=== PATIENT | male | born 1955 | race Caucasian/White ===

== ENCOUNTER 2017-04-03 22:31 | Inpatient (IN) | payer BC, OTHER ==
[2017-04-03] MEDS ORDERED: Pantoprazole 40 MG Vial IVPUSH ONE (22:35)
[2017-04-03] MEDS ORDERED: Lactated Ringers 1,000 ML IV ONE (22:35)
[2017-04-03] MEDS ORDERED: Famotidine 20 MG/2 ML SDV IVPUSH ONE (22:35)
[2017-04-03] MEDS ORDERED: Ondansetron 4 MG/2 ML SDV IVPUSH ONE ×2 (22:35→23:49)
--- NOTE | 2017-04-03 22:40 | EDM.PDOC ---
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 Code(s): 30497355 Code(s): K21.9 - GASTRO-ESOPHAGEAL REFLUX DISEASE WITHOUT ESOPHAGITIS Status: Chronic Priority: Medium Annotation/Comment:: Recently under moderate control as above with IV Protonix and IV Pepcid given in the emergency room (4) Abdominal wall hernia SNOMED Code(s): 038397604 Code(s): K43.9 - VENTRAL HERNIA WITHOUT OBSTRUCTION OR GANGRENE Status: Chronic Priority: Medium Annotation/Comment:: Large ventral wall abdominal and incisional hernias as above with no direct evidence of incarceration (5) COPD (chronic obstructive pulmonary disease) SNOMED Code(s): 36336367 Code(s): J44.9 - CHRONIC OBSTRUCTIVE PULMONARY DISEASE, UNSPECIFIED Status : Chronic Priority: Medium Annotation/Comment:: No recent fever or bronchitic type symptoms Qualifiers: COPD type: emphysema Emphysema type: panlobular Qualified Code(s): J43.1 - Panlobular emphysema (6) Hypothyroidism SNOMED Code(s): 34467971 Code(s): E03.9 - HYPOTHYROIDISM, UNSPECIFIED Status: Chronic Priority: Medium Annotation/Comment:: Currently under therapy Qualifiers: Hypothyroidism type: acquired Qualified Code(s): E03.9 - Hypothyroidism, unspecified (7) Mixed anxiety depressive disorder SNOMED Code(s): 666246321 Code(s): F41.8 - OTHER SPECIFIED ANXIETY DISORDERS Status: Chronic Priority: Medium Annotation/Comment:: Stable by patient history (8) Osteoarthritis SNOMED Code(s): 229616414 Code(s): M19.90 - UNSPECIFIED OSTEOARTHRITIS, UNSPECIFIED SITE Status: Chronic Priority: Medium Annotation/Comment:: Stable by history Qualifiers: Osteoarthritis location: multiple joints Osteoarthritis type: primary Qualified Code(s): M15.0 - Primary generalized (osteo)arthritis - Problem List Review Problem List Initiated/Reviewed/Updated: Yes - My Orders Last 24 Hours: My Active Orders 04/03/17 22:35 Peripheral IV Care [RC] . DIRECTED Abdomen Series w Chest 1V [CR] Stat OCCULT BLOOD DIAGNOSTIC [OP] Stat Sodium Chloride 0.9% [Saline Flush] 10 ml FLUSH ASDIRECTED PRN Obtain Past Medical Record [OM.PC] Urgent Peripheral IV Insertion Adult [OM.PC] Stat Resuscitation Status Stat 04/03/17 23:12 CULTURE URINE [RM] Stat 04/03/17 23:24 Abdomen Pelvis w Cont [CT] Stat 04/03/17 23:30 cefTRIAXone [Rocephin] 1 gm Sodium Chloride 0.9% [Normal Saline] 100 ml IV Q12H 04/03/17 Breakfast Nothing Per Oral Diet [DIET] 04/04/17 00:30 metroNIDAZOLE/Normal Saline [Flagyl 500 MG in NS 100 ML] 500 mg Premix Bag 1 bag IV Q8H 04/04/17 01:34 NG [Nasogastric Orogastric Tube Insertion] [OM.PC] Routine - Assessment/Plan Admission H&P: Please use this note as an admission H&P Last 24 Hours: My Active Orders 04/03/17 22:35 Peripheral IV Care [RC] . DIRECTED Abdomen Series w Chest 1V [CR] Stat OCCULT BLOOD DIAGNOSTIC [OP] Stat Sodium Chloride 0.9% [Saline Flush] 10 ml FLUSH ASDIRECTED PRN Obtain Past Medical Record [OM.PC] Urgent Peripheral IV Insertion Adult [OM.PC] Stat Resuscitation Status Stat 04/03/17 23:12 CULTURE URINE [RM] Stat 04/03/17 23:24 Abdomen Pelvis w Cont [CT] Stat 04/03/17 23:30 cefTRIAXone [Rocephin] 1 gm Sodium Chloride 0.9% [Normal Saline] 100 ml IV Q12H 04/03/17 Breakfast Nothing Per Oral Diet [DIET] 04/04/17 00:30 metroNIDAZOLE/Normal Saline [Flagyl 500 MG in NS 100 ML] 500 mg Premix Bag 1 bag IV Q8H 04/04/17 01:34 NG [Nasogastric Orogastric Tube Insertion] [OM.PC] Routine Assessment:: As above Plan: As above. Extensive precautions were given to the patient, who is in agreement with the treatment plan. The patient will require about 3-4 days of inpatient/ acute care secondary to multiple health problems as above.
[2017-04-03] MEDS: Sodium Chloride 0.9% 10 ML Syringe FLUSH PRN (22:59)
[2017-04-03 23:02] LABS: CHLORIDE,CL 101 mmol/L (98-107); SODIUM,NA 138 mmol/L (136-145)
[2017-04-03] MEDS ORDERED: HYDROmorphone 1 MG/ML Syringe IVPUSH ONE (23:50)
[2017-04-03] MEDS: cefTRIAXone 1 GM in Sodium Chloride 0.9% 100 ML IV SCH (23:51)
[2017-04-03] MEDS ORDERED: Iopamidol 612 MG/ML 100 ML Bottle IVPUSH ONE (23:57)
[2017-04-04] MEDS: metroNIDAZOLE/Normal Saline 500 MG in Premix Bag 1 BAG IV SCH ×4 (01:03→23:55)
[2017-04-04] MEDS ORDERED: Ondansetron 4 MG/2 ML SDV IVPUSH PRN (01:54)
[2017-04-04] MEDS ORDERED: Albuterol/Ipratropium 3.0-0.5 MG/3 ML Neb Soln NEB PRN (01:58)
[2017-04-04] MEDS ORDERED: Acetaminophen 650 MG Supp RECTAL PRN (01:58)
[2017-04-04] MEDS ORDERED: Albuterol 0.083% 2.5 MG/3 ML Neb Soln INH PRN (01:58)
[2017-04-04] MEDS ORDERED: Phenol 1.4% Oral Spray 177 ML Bottle MUCMEM PRN (01:59)
[2017-04-04] MEDS ORDERED: D5 1/2 NS w/ 20 mEq/L KCl 1,000 ML IV SCH (02:00)
[2017-04-04] MEDS: D5 1/2 NS w/ 40 mEq/L KCl 1,000 ML IV SCH ×2 (03:01→19:11)
[2017-04-04] MEDS: Albuterol/Ipratropium 3.0-0.5 MG/3 ML Neb Soln NEB SCH ×3 (08:37→19:35)
[2017-04-04] MEDS: Sodium Chloride 0.9% 10 ML Syringe FLUSH SCH ×2 (08:37→19:35)
--- NOTE | 2017-04-04 09:45 | PCM.SN ---
- Free Text/Narrative Note: KUB abdominal x-rays this morning shows stable moderate diffuse gaseous distention and stool with no evidence of free air and NG tube in proper position. Multiple surgical clips once again noted. Physical exam is stable from time of admission with improved symptoms by patient history. Vital signs are also stable with patient still afebrile, however development of some mild bradycardia. Continue to observe closely. Santiago Nickesron MD, general surgeon, did see the patient this morning with final consultation still pending but no further treatment recommendations to this point. [facility] physician assumes care in the a.m. with repeat blood work and x-rays already ordered. Anticipate 48-72 hours of NG tube therapy with consideration of transfer to [place], if the patient has not responded to therapy to that point. Extensive precautions were given to the patient, who is in agreement with the treatment plan.
[2017-04-04] MEDS: Pantoprazole 40 MG Vial IVPUSH SCH ×2 (11:37→23:54)
[2017-04-04] MEDS: cefTRIAXone 1 GM in Sodium Chloride 0.9% 100 ML IV SCH ×2 (11:38→23:54)
[2017-04-04] MEDS: Metoclopramide 10 MG/2 ML SDV IVPUSH PRN (16:22)
[2017-04-04] MEDS ORDERED: Temazepam 15 MG Cap PO PRN (20:00)
[2017-04-05] MEDS: Albuterol/Ipratropium 3.0-0.5 MG/3 ML Neb Soln NEB SCH ×4 (01:43→19:45)
[2017-04-05] MEDS: metroNIDAZOLE/Normal Saline 500 MG in Premix Bag 1 BAG IV SCH (07:45)
[2017-04-05] MEDS: Famotidine 20 MG/2 ML SDV IVPUSH SCH ×2 (07:45→19:46)
[2017-04-05] MEDS: Sodium Chloride 0.9% 10 ML Syringe FLUSH SCH ×2 (07:46→19:46)
[2017-04-05] MEDS: D5 1/2 NS w/ 40 mEq/L KCl 1,000 ML IV SCH ×2 (07:47→23:35)
[2017-04-05 07:52] LABS: CHLORIDE,CL 104 mmol/L (98-107); SODIUM,NA 137 mmol/L (136-145)
[2017-04-05] MEDS: Pantoprazole 40 MG Vial IVPUSH SCH ×2 (11:34→23:37)
[2017-04-05] MEDS: Sodium Chloride 0.9% 10 ML Syringe FLUSH PRN ×2 (11:34→23:38)
[2017-04-05] MEDS: cefTRIAXone 1 GM in Sodium Chloride 0.9% 100 ML IV SCH (11:34)
[2017-04-05] MEDS ORDERED: Magnesium Sulfate (4.06 MEQ/ML) 1 GM/2 ML SDV IV ONE (11:41)
--- NOTE | 2017-04-05 11:47 | PCM.PN ---
- General Info Date of Service: 04/05/17 Admission Dx/Problem (Free Text): Bowel obstruction Subjective Update: The patient reports pain has nearly resolved and currently rates pain at 1-2/ 10. He reports he has been passing some gas but no bowel movements. NG in place and remains NPO. Functional Status: Reports: pain controlled - Patient Data Vitals - most recent: Last Vital Signs Temp 36.4 C 04/05/17 08:00 Pulse 45 L 04/05/17 08:00 Resp 20 04/05/17 08:00 BP 106/65 04/05/17 08:00 Pulse Ox 98 04/05/17 08:00 Weight - most recent: 48.625 kg I&O - last 24 hours: Intake & Output 04/04/17 04/05/17 04/05/17 22:59 06:59 14:59 Intake Total 751 1000 Output Total 400 400 Balance 351 600 Lab Results last 24 hrs: Laboratory Results - last 24 hr 04/05/17 04/05/17 Range/Units 06:20 06:20 WBC 7.8 (4.0-10.2) K/uL RBC 4.08 L (4.33-5.41) M/uL Hgb 14.8 D (13.1-16.8) g/dL Hct 42.3 (39.0-49.0) % MCV 103.7 H (84.0-98.0) fL MCH 36.3 H (28.2-33.3) pg MCHC 35.0 (31.7-36.0) g/dL RDW 12.1 (11.2-14.1) % Plt Count 179 (150-350) K/uL Neut % (Auto) 74.2 (45.0-80.0) % Lymph % (Auto) 13.3 (10.0-50.0) % [place] % (Auto) 10.1 (2.0-14.0) % Eos % (Auto) 2.0 (0.0-5.0) % Baso % (Auto) 0.4 (0.0-2.0) % Neut # (Auto) 5.81 (1.40-7.00) K/uL Lymph # (Auto) 1.04 (0.50-3.50) K/uL [place] # (Auto) 0.79 (0.00-1.00) K/uL Eos # (Auto) 0.16 (0.00-0.50) K/uL Baso # (Auto) 0.03 (0.00-0.20) K/uL Sodium 137 (136-145) mmol/L Potassium 4.3 (3.5-5.1) mmol/L Chloride 104 (98-107) mmol/L Carbon Dioxide 28.9 (21.0-32.0) mmol/L BUN 7 (7-18) mg/dL Creatinine 0.75 (0.51-1.17) mg/dL Est Cr Clr Drug Dosing 73.52 mL/min Estimated GFR (MDRD) > 60 mL/min Glucose 111 H (74-106) mg/dL Calcium 8.0 L D (8.5-10.1) mg/dL Magnesium 1.6 L (1.8-2.4) mg/dL Total Bilirubin 0.7 (0.2-1.0) mg/dL AST 23 (15-37) U/L ALT 26 (12-78) U/L Alkaline Phosphatase 55 (46-116) IU/L Total Protein 6.0 L (6.4-8.2) g/dL Albumin 3.2 L (3.4-5.0) g/dL Amylase 42 (25-115) U/L Lipase 102 (73-393) U/L Med Orders - Current: Current Medications Acetaminophen (Tylenol) 650 mg RECTAL Q4H PRN PRN Reason: Fever Albuterol (Proventil Neb Soln) 2.5 mg INH Q2HR PRN PRN Reason: SHORTNESS OF BREATH Albuterol/Ipratropium (Duoneb 3.0-0.5 Mg/3 Ml) 3 ml NEB Q4HRRT PRN PRN Reason: Dyspnea Albuterol/Ipratropium (Duoneb 3.0-0.5 Mg/3 Ml) 3 ml NEB Q6HRRT [facility] Last Admin: 04/05/17 07:45 Dose: 3 ml Famotidine (Pepcid) 20 mg IVPUSH Q12H [facility] Last Admin: 04/05/17 07:45 Dose: 20 mg Ceftriaxone Sodium 1 gm/ (Sodium Chloride) 100 mls @ 200 mls/hr IV Q12H [facility] Last Admin: 04/05/17 11:34 Dose: 200 mls/hr Metronidazole 500 mg/ Premix 100 mls @ 100 mls/hr IV Q8H [facility] Last Admin: 04/05/17 07:45 Dose: 100 mls/hr Potassium Chloride/Dextrose/Sod Cl (D5 1/2 Ns W/ 40 Meq/L Kcl) 1,000 mls @ 80 mls/hr IV ASDIRECTED [facility] Last Admin: 04/05/17 07:47 Dose: 80 mls/hr Magnesium Sulfate (Magnesium Sulfate 50%) 1 gm IV ONETIME ONE Stop: 04/05/17 11:42 Metoclopramide HCl (Reglan) 10 mg IVPUSH Q6H PRN PRN Reason: Heartburn Last Admin: 04/04/17 16:22 Dose: 10 mg Ondansetron HCl (Zofran) 4 mg IVPUSH Q6H PRN PRN Reason: Nausea/Vomiting Pantoprazole Sodium (Protonix Iv) 40 mg IVPUSH Q12H [facility] Last Admin: 04/05/17 11:34 Dose: 40 mg Phenol/Menthol (Chloraseptic Throat [place]) 0 ml MUCMEM Q2H PRN PRN Reason: Sore Throat Sodium Chloride (Saline Flush) 10 ml FLUSH ASDIRECTED PRN PRN Reason: Keep Vein Open Last Admin: 04/05/17 11:34 Dose: 10 ml Sodium Chloride (Saline Flush) 10 ml FLUSH Q12HR [facility] Last Admin: 04/05/17 07:46 Dose: 10 ml Temazepam (Restoril) 15 mg PO DAILY@2000 PRN PRN Reason: Insomnia Discontinued Medications Famotidine (Pepcid) 40 mg IVPUSH ONETIME ONE Stop: 04/03/17 22:36 Last Admin: 04/03/17 23:05 Dose: 40 mg Hydromorphone HCl (Dilaudid) 1 mg IVPUSH ONETIME ONE Stop: 04/03/17 23:51 Last Admin: 04/03/17 23:54 Dose: 1 mg Lactated Ringer's (Ringers, Lactated) 1,000 mls @ 999 mls/hr IV .BOLUS ONE Stop: 04/03/17 23:35 Last Admin: 04/03/17 23:18 Dose: 999 mls/hr Potassium Chloride/Dextrose/Sod Cl (D5 1/2 Ns W/ 20 Meq/L Kcl) 1,000 mls @ 75 mls/hr IV ASDIRECTED [place] Iopamidol (Isovue-300 (61%)) 100 ml IVPUSH ONETIME ONE Stop: 04/03/17 23:58 Last Admin: 04/04/17 00:54 Dose: 100 ml Ondansetron HCl (Zofran) 4 mg IVPUSH ONETIME ONE Stop: 04/03/17 22:36 Last Admin: 04/03/17 22:56 Dose: 4 mg Ondansetron HCl (Zofran) 4 mg IVPUSH ONETIME ONE Stop: 04/03/17 23:50 Last Admin: 04/03/17 23:55 Dose: 4 mg Pantoprazole Sodium (Protonix Iv) 40 mg IVPUSH ONETIME ONE Stop: 04/03/17 22:36 Last Admin: 04/03/17 22:59 Dose: 40 mg - Exam Quality Assessment: supplemental oxygen (4L ) General: alert, oriented, no acute distress HEENT: Pupils equal, Pupils reactive, EOMI, Mucous membr. moist/pink Neck: supple Lungs: Clear to auscultation, Normal respiratory effort Cardiovascular: Regular Rate, Regular Rhythm Abdomen: bowel sounds present (Hypoactive), soft, no distension, tenderness ( Very mild and diffuse. ). No: rebound, guarding, CVA tenderness Back Exam: Normal Inspection, Full Range of Motion. No: CVA Tenderness (L), CVA Tenderness (R), Paraspinal Tenderness, Vertebral Tenderness Extremities: no edema Peripheral Pulses: 2+: Radial (L), Radial (R) Skin: warm, dry, intact Neurological: no new focal deficit Psy/Mental Status: alert, normal affect, normal mood - Problem List & Annotations (1) Bowel obstruction SNOMED Code(s): 29076826 Code(s): K56.60 - UNSPECIFIED INTESTINAL OBSTRUCTION Status: Acute Priority: High Current Visit: Yes Qualifiers: Intestinal obstruction type: unspecified Qualified Code(s): K56.60 - Unspecified intestinal obstruction Annotation/Comment:: Bowel obstruction on admission with colonic distention and air-fluid levels. Improving clinically and radiographically. (2) Ileus SNOMED Code(s): 522370107 Code(s): K56.7 - ILEUS, UNSPECIFIED Status: Acute Priority: High Current Visit: Yes Onset Date: ~04/04/17 Annotation/Comment:: Significant abdominal ileus and bowel obstruction by plain abdominal films. Improving clinically. (3) COPD (chronic obstructive pulmonary disease) SNOMED Code(s): 21951911 Code(s): J44.9 - CHRONIC OBSTRUCTIVE PULMONARY DISEASE, UNSPECIFIED Status : Chronic Priority: Medium Current Visit: Yes Qualifiers: COPD type: emphysema Emphysema type: panlobular Qualified Code(s): J43.1 - Panlobular emphysema Annotation/Comment:: No recent fever or bronchitic type symptoms (4) Hypothyroidism SNOMED Code(s): 83581936 Code(s): E03.9 - HYPOTHYROIDISM, UNSPECIFIED Status: Chronic Priority: Medium Current Visit: Yes Qualifiers: Hypothyroidism type: acquired Qualified Code(s): E03.9 - Hypothyroidism, unspecified Annotation/Comment:: Currently treated. (5) Peptic reflux disease SNOMED Code(s): 92770415 Code(s): K21.9 - GASTRO-ESOPHAGEAL REFLUX DISEASE WITHOUT ESOPHAGITIS Status: Chronic Priority: Medium Current Visit: Yes Annotation/Comment:: Recently under moderate control as above with IV Protonix and IV Pepcid given in the emergency room (6) Mixed anxiety depressive disorder SNOMED Code(s): 767085382 Code(s): F41.8 - OTHER SPECIFIED ANXIETY DISORDERS Status: Chronic Priority: Medium Current Visit: Yes Annotation/Comment:: Stable by patient history (7) Osteoarthritis SNOMED Code(s): 662824073 Code(s): M19.90 - UNSPECIFIED OSTEOARTHRITIS, UNSPECIFIED SITE Status: Chronic Priority: Medium Current Visit: Yes Qualifiers: Osteoarthritis location: multiple joints Osteoarthritis type: primary Qualified Code(s): M15.0 - Primary generalized (osteo)arthritis Annotation/Comment:: Stable by history - Problem List Review Problem List Initiated/Reviewed/Updated: Yes - My Orders Last 24 Hours: My Active Orders 04/05/17 11:39 PHOSPHORUS [CHEM] Routine 04/05/17 11:41 Magnesium Sulfate [Magnesium Sulfate 50%] 1 gm IV ONETIME ONE - Assessment Assessment:: Bowel obstruction with ileus, improving clinically and radiographically. Hypomagnesemia. - Plan Plan:: 1. Continue NG and NPO today. 2. If continued improvement in pain and passing gas will advance diet beginning tomorrow. 3. IV magnesium sulfate for hypomagnesemia. 4. Check serum phosphophorus level as hypomagnesemia. 5. Wean oxygen as toleraed. 6. ABBIE beatriz and Wesleyx for DVT prophylaxis. 7. IS for pneumonia prophylaxis. 8. Recheck labs in AM.
[2017-04-05] MEDS: Enoxaparin 40 MG/0.4 ML Syringe SUBCUT SCH (12:27)
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
[2017-04-05] MEDS: Metoclopramide 10 MG/2 ML SDV IVPUSH PRN (17:54)
[2017-04-06] MEDS: Albuterol/Ipratropium 3.0-0.5 MG/3 ML Neb Soln NEB SCH ×4 (02:06→19:11)
[2017-04-06] MEDS: Enoxaparin 40 MG/0.4 ML Syringe SUBCUT SCH (07:19)
[2017-04-06] MEDS: Famotidine 20 MG/2 ML SDV IVPUSH SCH ×2 (07:19→19:10)
[2017-04-06] MEDS: Sodium Chloride 0.9% 10 ML Syringe FLUSH SCH ×2 (07:20→19:11)
[2017-04-06 07:26] LABS: CHLORIDE,CL 103 mmol/L (98-107); SODIUM,NA 136 mmol/L (136-145)
[2017-04-06] MEDS ORDERED: Magnesium Sulfate/Water 2 GM in Premix Bag 1 BAG IV ONE (10:50)
[2017-04-06] MEDS: Sodium Chloride 0.9% 10 ML Syringe FLUSH PRN ×2 (11:21→23:37)
[2017-04-06] MEDS: Pantoprazole 40 MG Vial IVPUSH SCH ×2 (11:21→23:36)
[2017-04-06] MEDS ORDERED: Acetaminophen 325 MG Tab PO ONE (17:26)
[2017-04-06] MEDS: Menthol/Methyl Salicylate 85 GM Tube TOP PRN ×2 (17:46→20:39)
[2017-04-06] MEDS: Acetaminophen 325 MG Tab PO PRN ×2 (17:47→21:05)
--- NOTE | 2017-04-06 18:52 | PCM.PN ---
- General Info Date of Service: 04/06/17 Admission Dx/Problem (Free Text): Bowel obstruction Subjective Update: The patient reports no abdominal pain and bowels are active and he can hear and feel bowel activity. Reports passing gas. Reports he feels hungry. Denies bowel movement. - Patient Data Vitals - most recent: Last Vital Signs Temp 36.5 C 04/06/17 16:30 Pulse 65 04/06/17 16:30 Resp 20 04/06/17 16:30 BP 116/79 04/06/17 16:30 Pulse Ox 100 04/06/17 16:30 Weight - most recent: 47.344 kg I&O - last 24 hours: Intake & Output 04/06/17 04/06/17 04/06/17 06:59 14:59 22:59 Intake Total 879 867 680 Output Total 1080 200 Balance -201 867 480 Lab Results last 24 hrs: Laboratory Results - last 24 hr 04/06/17 04/06/17 Range/Units 06:50 06:50 WBC 5.9 (4.0-10.2) K/uL RBC 3.97 L (4.33-5.41) M/uL Hgb 14.9 (13.1-16.8) g/dL Hct 40.0 (39.0-49.0) % MCV 100.8 H (84.0-98.0) fL MCH 37.5 H (28.2-33.3) pg MCHC 37.3 H (31.7-36.0) g/dL RDW 12.0 (11.2-14.1) % Plt Count 162 (150-350) K/uL Neut % (Auto) 66.5 (45.0-80.0) % Lymph % (Auto) 17.1 (10.0-50.0) % [place] % (Auto) 12.7 (2.0-14.0) % Eos % (Auto) 3.2 (0.0-5.0) % Baso % (Auto) 0.5 (0.0-2.0) % Neut # (Auto) 3.92 (1.40-7.00) K/uL Lymph # (Auto) 1.01 (0.50-3.50) K/uL [place] # (Auto) 0.75 (0.00-1.00) K/uL Eos # (Auto) 0.19 (0.00-0.50) K/uL Baso # (Auto) 0.03 (0.00-0.20) K/uL Sodium 136 (136-145) mmol/L Potassium 4.5 (3.5-5.1) mmol/L Chloride 103 (98-107) mmol/L Carbon Dioxide 28.2 (21.0-32.0) mmol/L BUN 5 L (7-18) mg/dL Creatinine 0.73 (0.51-1.17) mg/dL Est Cr Clr Drug Dosing 74.01 mL/min Estimated GFR (MDRD) > 60 mL/min Glucose 106 (74-106) mg/dL Calcium 8.5 (8.5-10.1) mg/dL Phosphorus 3.0 (2.6-4.7) mg/dL Magnesium 1.7 L (1.8-2.4) mg/dL Total Bilirubin 0.6 (0.2-1.0) mg/dL AST 21 (15-37) U/L ALT 25 (12-78) U/L Alkaline Phosphatase 56 (46-116) IU/L C-Reactive Protein 0.6 (<=0.9) mg/dL Total Protein 6.5 (6.4-8.2) g/dL Albumin 3.4 (3.4-5.0) g/dL Med Orders - Current: Current Medications Acetaminophen (Tylenol) 650 mg RECTAL Q4H PRN PRN Reason: Fever Acetaminophen (Tylenol) 650 mg PO Q4HR PRN PRN Reason: Pain/Fever Last Admin: 04/06/17 17:47 Dose: 650 mg Albuterol (Proventil Neb Soln) 2.5 mg INH Q2HR PRN PRN Reason: SHORTNESS OF BREATH Albuterol/Ipratropium (Duoneb 3.0-0.5 Mg/3 Ml) 3 ml NEB Q4HRRT PRN PRN Reason: Dyspnea Albuterol/Ipratropium (Duoneb 3.0-0.5 Mg/3 Ml) 3 ml NEB Q6HRRT [facility] Last Admin: 04/06/17 14:27 Dose: 3 ml Enoxaparin Sodium (Lovenox) 40 mg SUBCUT DAILY [facility] Last Admin: 04/06/17 07:19 Dose: 40 mg Famotidine (Pepcid) 20 mg IVPUSH Q12H [facility] Last Admin: 04/06/17 07:19 Dose: 20 mg Methyl Salicylate (Icy Hot Cream) 0 gm TOP ASDIRECTED PRN PRN Reason: Muscle aches Last Admin: 04/06/17 17:46 Dose: 1 applic Metoclopramide HCl (Reglan) 10 mg IVPUSH Q6H PRN PRN Reason: Heartburn Last Admin: 04/05/17 17:54 Dose: 10 mg Ondansetron HCl (Zofran) 4 mg IVPUSH Q6H PRN PRN Reason: Nausea/Vomiting Pantoprazole Sodium (Protonix Iv) 40 mg IVPUSH Q12H [facility] Last Admin: 04/06/17 11:21 Dose: 40 mg Phenol/Menthol (Chloraseptic Throat [place]) 0 ml MUCMEM Q2H PRN PRN Reason: Sore Throat Last Admin: 04/05/17 17:54 Dose: 1 spray Sodium Chloride (Saline Flush) 10 ml FLUSH ASDIRECTED PRN PRN Reason: Keep Vein Open Last Admin: 04/06/17 11:21 Dose: 10 ml Sodium Chloride (Saline Flush) 10 ml FLUSH Q12HR [facility] Last Admin: 04/06/17 07:20 Dose: 10 ml Temazepam (Restoril) 15 mg PO DAILY@2000 PRN PRN Reason: Insomnia Discontinued Medications Acetaminophen (Tylenol) 650 mg PO Q4HR ONE Stop: 04/06/17 17:27 Last Admin: 04/06/17 17:35 Dose: Not Given Famotidine (Pepcid) 40 mg IVPUSH ONETIME ONE Stop: 04/03/17 22:36 Last Admin: 04/03/17 23:05 Dose: 40 mg Hydromorphone HCl (Dilaudid) 1 mg IVPUSH ONETIME ONE Stop: 04/03/17 23:51 Last Admin: 04/03/17 23:54 Dose: 1 mg Lactated Ringer's (Ringers, Lactated) 1,000 mls @ 999 mls/hr IV .BOLUS ONE Stop: 04/03/17 23:35 Last Admin: 04/03/17 23:18 Dose: 999 mls/hr Ceftriaxone Sodium 1 gm/ (Sodium Chloride) 100 mls @ 200 mls/hr IV Q12H [facility] Last Admin: 04/05/17 11:34 Dose: 200 mls/hr Metronidazole 500 mg/ Premix 100 mls @ 100 mls/hr IV Q8H [facility] Last Admin: 04/05/17 07:45 Dose: 100 mls/hr Potassium Chloride/Dextrose/Sod Cl (D5 1/2 Ns W/ 20 Meq/L Kcl) 1,000 mls @ 75 mls/hr IV ASDIRECTED [facility] Potassium Chloride/Dextrose/Sod Cl (D5 1/2 Ns W/ 40 Meq/L Kcl) 1,000 mls @ 80 mls/hr IV ASDIRECTED [facility] Last Admin: 04/05/17 23:35 Dose: 80 mls/hr Magnesium Sulfate 2 gm/ Premix 50 mls @ 50 mls/hr IV ONETIME ONE Stop: 04/06/17 11:49 Last Admin: 04/06/17 11:21 Dose: 50 mls/hr Iopamidol (Isovue-300 (61%)) 100 ml IVPUSH ONETIME ONE Stop: 04/03/17 23:58 Last Admin: 04/04/17 00:54 Dose: 100 ml Magnesium Sulfate/Dextrose (Magnesium 1 Gm In D5w 100 Ml) 1 gm IV ONETIME ONE Stop: 04/05/17 12:01 Last Admin: 04/05/17 12:26 Dose: 1 gm Ondansetron HCl (Zofran) 4 mg IVPUSH ONETIME ONE Stop: 04/03/17 22:36 Last Admin: 04/03/17 22:56 Dose: 4 mg Ondansetron HCl (Zofran) 4 mg IVPUSH ONETIME ONE Stop: 04/03/17 23:50 Last Admin: 04/03/17 23:55 Dose: 4 mg Pantoprazole Sodium (Protonix Iv) 40 mg IVPUSH ONETIME ONE Stop: 04/03/17 22:36 Last Admin: 04/03/17 22:59 Dose: 40 mg - Exam General: alert, oriented HEENT: Pupils equal, Pupils reactive, EOMI, Mucous membr. moist/pink Neck: supple Lungs: Clear to auscultation, Normal respiratory effort Cardiovascular: Regular Rate, Regular Rhythm Abdomen: bowel sounds present, soft, no tenderness, no distension. No: rigidity , rebound, guarding Extremities: no edema, normal pulses, no tenderness/swelling, no clubbing, no cyanosis Peripheral Pulses: 2+: Dorsalis Pedis (L), Dorsalis Pedis (R) Skin: warm, dry, intact Neurological: no new focal deficit - Problem List & Annotations (1) Bowel obstruction SNOMED Code(s): 57510291 Code(s): K56.60 - UNSPECIFIED INTESTINAL OBSTRUCTION Status: Acute Priority: High Current Visit: Yes Qualifiers: Intestinal obstruction type: unspecified Qualified Code(s): K56.60 - Unspecified intestinal obstruction Annotation/Comment:: Bowel obstruction on admission with colonic distention and air-fluid levels. Improved significantly clinically and radiographically. Bowel sounds active and passing gas currently. Will advance diet today as tolerated beginning with clear liquids. (2) Ileus SNOMED Code(s): 040978596 Code(s): K56.7 - ILEUS, UNSPECIFIED Status: Acute Priority: High Current Visit: Yes Onset Date: ~04/04/17 Annotation/Comment:: Significant abdominal ileus and bowel obstruction by plain abdominal films. Improving clinically with active bowel sounds and passing gas. Advance diet today beginning with clear liquids. (3) Hypomagnesemia SNOMED Code(s): 306408115 Code(s): E83.42 - HYPOMAGNESEMIA Status: Acute Priority: Medium Current Visit: Yes Annotation/Comment:: Persistent hypomagnesemia. Will replete with magnesium sulfate 2 grams IV today and recheck along with phosphorus and CMP in am. (4) COPD (chronic obstructive pulmonary disease) SNOMED Code(s): 34998258 Code(s): J44.9 - CHRONIC OBSTRUCTIVE PULMONARY DISEASE, UNSPECIFIED Status : Chronic Priority: Medium Current Visit: Yes Qualifiers: COPD type: emphysema Emphysema type: panlobular Qualified Code(s): J43.1 - Panlobular emphysema Annotation/Comment:: No recent fever or bronchitic type symptoms (5) Hypothyroidism SNOMED Code(s): 30376093 Code(s): E03.9 - HYPOTHYROIDISM, UNSPECIFIED Status: Chronic Priority: Medium Current Visit: Yes Qualifiers: Hypothyroidism type: acquired Qualified Code(s): E03.9 - Hypothyroidism, unspecified Annotation/Comment:: Currently treated. (6) Peptic reflux disease SNOMED Code(s): 17516395 Code(s): K21.9 - GASTRO-ESOPHAGEAL REFLUX DISEASE WITHOUT ESOPHAGITIS Status: Chronic Priority: Medium Current Visit: Yes Annotation/Comment:: Recently under moderate control as above with IV Protonix and IV Pepcid given in the emergency room (7) Mixed anxiety depressive disorder SNOMED Code(s): 506350418 Code(s): F41.8 - OTHER SPECIFIED ANXIETY DISORDERS Status: Chronic Priority: Medium Current Visit: Yes Annotation/Comment:: Chronic and stable. (8) Osteoarthritis SNOMED Code(s): 512592717 Code(s): M19.90 - UNSPECIFIED OSTEOARTHRITIS, UNSPECIFIED SITE Status: Chronic Priority: Medium Current Visit: Yes Qualifiers: Osteoarthritis location: multiple joints Osteoarthritis type: primary Qualified Code(s): M15.0 - Primary generalized (osteo)arthritis Annotation/Comment:: Chronic and stable. - Problem List Review Problem List Initiated/Reviewed/Updated: Yes - My Orders Last 24 Hours: My Active Orders 04/05/17 18:45 Vital Signs [RC] QID 04/06/17 13:20 Nasogastric Orogastric Tube Removal [OM.PC] Routine 04/06/17 17:27 Menthol/Methyl Salicylate [Icy Hot Cream] 0 gm TOP ASDIRECTED PRN 04/06/17 17:33 Acetaminophen [Tylenol] 650 mg PO Q4HR PRN 04/06/17 Lunch Clear Liquid Diet [DIET] - Assessment Assessment:: Bowel obstruction with ileus, resolving clinically and radiographically. Hypomagnesemia. - Plan Plan:: 1. Removed NG tube. 2. Advance diet as tolerated beginning with clear liquid diet and to regular diet as tolerated today. 3. IV magnesium sulfate 2 grams for hypomagnesemia. 4. Saline lock IV. 5. Encourage PO fluids. 6. ABBIE hose and Lovenox for DVT prophylaxis. 7. IS for pneumonia prophylaxis. 8. Recheck labs in AM.
[2017-04-07] MEDS: Albuterol/Ipratropium 3.0-0.5 MG/3 ML Neb Soln NEB SCH ×2 (03:37→07:28)
[2017-04-07] MEDS: Menthol/Methyl Salicylate 85 GM Tube TOP PRN ×2 (05:03→08:24)
[2017-04-07 07:10] LABS: CHLORIDE,CL 100 mmol/L (98-107); SODIUM,NA 136 mmol/L (136-145)
[2017-04-07] MEDS: Acetaminophen 325 MG Tab PO PRN (07:27)
[2017-04-07] MEDS: Famotidine 20 MG/2 ML SDV IVPUSH SCH (07:28)
[2017-04-07] MEDS: Enoxaparin 40 MG/0.4 ML Syringe SUBCUT SCH (07:28)
[2017-04-07] MEDS: Sodium Chloride 0.9% 10 ML Syringe FLUSH SCH (07:33)
[2017-04-07 07:35] VITALS: BP 119/76
--- NOTE | 2017-04-07 11:12 | PCM.DCSUM1 ---
Discharge Summary - Hospital Course Free Text/Narrative:: The patient was admitted on 04/03/17 with bowel obstruction. Treated with NG tube to low intermittent suction and bowel rest. Gradual improvement of symptoms and return of bowel sounds and activity. Started on clear liquid diet on 04/06/17 and tolerated well and advanced to soft diet and tolerating well. Evidence of resolution of obstruction as pain has resolved, bowel sounds active , passing gas, tolerating oral liquids and diet. Ready for discharge today. Will resume home medications as prescribed incluing Zantac for GERD. Follow up with PCP this week s/p hospitalization for bowel obstruction, GERD, and hypomagnesemia. - Discharge Data Discharge Date: 04/07/17 Discharge Disposition: Home, Self-Care 01 Condition: Good - Discharge Diagnosis/Problem(s) (1) Bowel obstruction SNOMED Code(s): 33280329 ICD Code: K56.60 - UNSPECIFIED INTESTINAL OBSTRUCTION Status: Acute Priority: High Current Visit: No Problem Details: Bowel obstruction on admission with colonic distention and air-fluid levels. Resolved, no pain, bowels active, tolerating oral soft diet and liquids, passing gas, no bowel movement at this time but patient states he feels he will have one shortly. Qualifiers: Intestinal obstruction type: unspecified Qualified Code(s): K56.60 - Unspecified intestinal obstruction (2) Ileus SNOMED Code(s): 809974157 ICD Code: K56.7 - ILEUS, UNSPECIFIED Status: Acute Priority: High Current Visit: Yes Onset Date: ~04/04/17 Problem Details: Significant abdominal ileus and bowel obstruction by plain abdominal films. Resolved as above. (3) Hypomagnesemia SNOMED Code(s): 796664215 ICD Code: E83.42 - HYPOMAGNESEMIA Status: Acute Priority: Medium Current Visit: Yes Problem Details: Persistent hypomagnesemia. Corrected. Will have follow up with PCP. (4) COPD (chronic obstructive pulmonary disease) SNOMED Code(s): 96396038 ICD Code: J44.9 - CHRONIC OBSTRUCTIVE PULMONARY DISEASE, UNSPECIFIED Status : Chronic Priority: Medium Current Visit: Yes Problem Details: Chronic. No symptoms of exacerbation currently. Qualifiers: COPD type: emphysema Emphysema type: panlobular Qualified Code(s): J43.1 - Panlobular emphysema (5) Hypothyroidism SNOMED Code(s): 06391693 ICD Code: E03.9 - HYPOTHYROIDISM, UNSPECIFIED Status: Chronic Priority: Medium Current Visit: Yes Problem Details: Chronic and under therapy. Qualifiers: Hypothyroidism type: acquired Qualified Code(s): E03.9 - Hypothyroidism, unspecified (6) Peptic reflux disease SNOMED Code(s): 82692121 ICD Code: K21.9 - GASTRO-ESOPHAGEAL REFLUX DISEASE WITHOUT ESOPHAGITIS Status: Chronic Priority: Medium Current Visit: Yes Problem Details: Controlled currently. (7) Mixed anxiety depressive disorder SNOMED Code(s): 304731642 ICD Code: F41.8 - OTHER SPECIFIED ANXIETY DISORDERS Status: Chronic Priority: Medium Current Visit: Yes Problem Details: Chronic and stable. (8) Osteoarthritis SNOMED Code(s): 696487831 ICD Code: M19.90 - UNSPECIFIED OSTEOARTHRITIS, UNSPECIFIED SITE Status: Chronic Priority: Medium Current Visit: Yes Problem Details: Chronic and stable. Qualifiers: Osteoarthritis location: multiple joints Osteoarthritis type: primary Qualified Code(s): M15.0 - Primary generalized (osteo)arthritis - Patient Summary/Data Consults: Consultations 04/04/17 05:11 Consult to Physician [CONS] Routine - Patient Instructions Diet: Usual Diet as Tolerated Activity: As Tolerated Driving: May Drive Today Showering/Bathing: May Shower Notify Provider of: Increased Pain Other/Special Instructions: 1. Resume home prescriptions as ordered. 2. Gradually advance diet and activity as tolerated. 3. Follow up with PCP next week s/p hospitalization for bowel obstruction, GERD, and persistent hypomagnesemia. - Discharge Plan Home Medications: Home Meds Fluticasone/Salmeterol [Advair 250-50 Diskus] 1 puff INH BID 03/07/16 [History] Levothyroxine Sodium [Levothyroxine Sodium] 25 mcg PO DAILY 03/07/16 [History] Albuterol [Ventolin HFA] 8 gm INH Q4H PRN 04/04/17 [History] Aspirin [Halfprin] 81 mg PO BRK 04/04/17 [History] Calcium Carbonate/Vitamin D3 [Calcium 600 + Vit D 200] 1 tab PO DAILY 04/04/17 [ History] Cinnamon Bark [Cinnamon] 1,000 mg PO ASDIRECTED PRN 04/04/17 [History] Cyanocobalamin (Vitamin B-12) [Vitamin B-12] 1,000 mcg PO DAILY 04/04/17 [ History] Glucosamine [Glucosamine Sulfate] 500 mg PO DAILY 04/04/17 [History] Ranitidine HCl [Zantac 75] 75 mg PO ASDIRECTED PRN 04/04/17 [History] Patient Handouts: Small Bowel Obstruction, Gastroesophageal Reflux Disease, Adult, Hypomagnesemia Forms: ED Department Discharge Referrals: PCP,None [Primary Care Provider] - - Discharge Summary/Plan Comment DC Time >30 min.: No - General Info Admission Dx/Problem (Free Text: Bowel obstruction Functional Status: Reports: tolerating diet, ambulating, urinating, other (Pain resolved. ) - Review of Systems General: Reports: No Symptoms HEENT: Reports: no symptoms Pulmonary: Reports: no symptoms Cardiovascular: Reports: No Symptoms Gastrointestinal: Reports: No symptoms Genitourinary: Reports: no symptoms Musculoskeletal: Reports: no symptoms Skin: Reports: no symptoms Neurological: Reports: No Symptoms Psychiatric: Reports: no symptoms - Patient Data Vitals - Most Recent: Last Vital Signs Temp 36.8 C 04/07/17 07:34 Pulse 71 04/07/17 07:34 Resp 18 04/07/17 07:34 BP 119/76 04/07/17 07:34 Pulse Ox 100 04/07/17 07:34 Weight - Most Recent: 48.081 kg I&O - Last 24 hours: Intake & Output 04/06/17 04/07/17 04/07/17 22:59 06:59 14:59 Intake Total 1080 400 260 Output Total 450 900 Balance 630 -500 260 Lab Results - Last 24 hrs: Laboratory Results - last 24 hr 04/07/17 04/07/17 Range/Units 06:20 06:20 WBC 9.5 (4.0-10.2) K/uL RBC 3.96 L (4.33-5.41) M/uL Hgb 14.9 (13.1-16.8) g/dL Hct 39.6 (39.0-49.0) % MCV 100.0 H (84.0-98.0) fL MCH 37.6 H (28.2-33.3) pg MCHC 37.6 H (31.7-36.0) g/dL RDW 12.0 (11.2-14.1) % Plt Count 173 (150-350) K/uL Neut % (Auto) 73.2 (45.0-80.0) % Lymph % (Auto) 10.4 (10.0-50.0) % [place] % (Auto) 15.5 H (2.0-14.0) % Eos % (Auto) 0.8 (0.0-5.0) % Baso % (Auto) 0.1 (0.0-2.0) % Neut # (Auto) 6.96 (1.40-7.00) K/uL Lymph # (Auto) 0.99 (0.50-3.50) K/uL [place] # (Auto) 1.48 H (0.00-1.00) K/uL Eos # (Auto) 0.08 (0.00-0.50) K/uL Baso # (Auto) 0.01 (0.00-0.20) K/uL Sodium 136 (136-145) mmol/L Potassium 4.4 (3.5-5.1) mmol/L Chloride 100 (98-107) mmol/L Carbon Dioxide 27.5 (21.0-32.0) mmol/L BUN 8 (7-18) mg/dL Creatinine 0.77 (0.51-1.17) mg/dL Est Cr Clr Drug Dosing 68.32 mL/min Estimated GFR (MDRD) > 60 mL/min Glucose 105 (74-106) mg/dL Calcium 8.6 (8.5-10.1) mg/dL Phosphorus 3.3 (2.6-4.7) mg/dL Magnesium 1.8 (1.8-2.4) mg/dL Total Bilirubin 0.7 (0.2-1.0) mg/dL AST 22 (15-37) U/L ALT 23 (12-78) U/L Alkaline Phosphatase 63 (46-116) IU/L Total Protein 6.8 (6.4-8.2) g/dL Albumin 3.5 (3.4-5.0) g/dL Med Orders - Current: Current Medications Acetaminophen (Tylenol) 650 mg RECTAL Q4H PRN PRN Reason: Fever Acetaminophen (Tylenol) 650 mg PO Q4HR PRN PRN Reason: Pain/Fever Last Admin: 04/07/17 07:27 Dose: 650 mg Albuterol (Proventil Neb Soln) 2.5 mg INH Q2HR PRN PRN Reason: SHORTNESS OF BREATH Albuterol/Ipratropium (Duoneb 3.0-0.5 Mg/3 Ml) 3 ml NEB Q4HRRT PRN PRN Reason: Dyspnea Albuterol/Ipratropium (Duoneb 3.0-0.5 Mg/3 Ml) 3 ml NEB Q6HRRT [facility] Last Admin: 04/07/17 07:28 Dose: Not Given Enoxaparin Sodium (Lovenox) 40 mg SUBCUT DAILY [facility] Last Admin: 04/07/17 07:28 Dose: 40 mg Famotidine (Pepcid) 20 mg IVPUSH Q12H [facility] Last Admin: 04/07/17 07:28 Dose: 20 mg Methyl Salicylate (Icy Hot Cream) 0 gm TOP ASDIRECTED PRN PRN Reason: Muscle aches Last Admin: 04/07/17 08:24 Dose: 1 applic Metoclopramide HCl (Reglan) 10 mg IVPUSH Q6H PRN PRN Reason: Heartburn Last Admin: 04/05/17 17:54 Dose: 10 mg Ondansetron HCl (Zofran) 4 mg IVPUSH Q6H PRN PRN Reason: Nausea/Vomiting Pantoprazole Sodium (Protonix Iv) 40 mg IVPUSH Q12H [facility] Last Admin: 04/06/17 23:36 Dose: 40 mg Phenol/Menthol (Chloraseptic Throat [place]) 0 ml MUCMEM Q2H PRN PRN Reason: Sore Throat Last Admin: 04/05/17 17:54 Dose: 1 spray Sodium Chloride (Saline Flush) 10 ml FLUSH ASDIRECTED PRN PRN Reason: Keep Vein Open Last Admin: 04/06/17 23:37 Dose: 10 ml Sodium Chloride (Saline Flush) 10 ml FLUSH Q12HR [facility] Last Admin: 04/07/17 07:33 Dose: 10 ml Temazepam (Restoril) 15 mg PO DAILY@2000 PRN PRN Reason: Insomnia Last Admin: 04/06/17 20:41 Dose: 15 mg Discontinued Medications Acetaminophen (Tylenol) 650 mg PO Q4HR ONE Stop: 04/06/17 17:27 Last Admin: 04/06/17 17:35 Dose: Not Given Famotidine (Pepcid) 40 mg IVPUSH ONETIME ONE Stop: 04/03/17 22:36 Last Admin: 04/03/17 23:05 Dose: 40 mg Hydromorphone HCl (Dilaudid) 1 mg IVPUSH ONETIME ONE Stop: 04/03/17 23:51 Last Admin: 04/03/17 23:54 Dose: 1 mg Lactated Ringer's (Ringers, Lactated) 1,000 mls @ 999 mls/hr IV .BOLUS ONE Stop: 04/03/17 23:35 Last Admin: 04/03/17 23:18 Dose: 999 mls/hr Ceftriaxone Sodium 1 gm/ (Sodium Chloride) 100 mls @ 200 mls/hr IV Q12H [facility] Last Admin: 04/05/17 11:34 Dose: 200 mls/hr Metronidazole 500 mg/ Premix 100 mls @ 100 mls/hr IV Q8H [facility] Last Admin: 04/05/17 07:45 Dose: 100 mls/hr Potassium Chloride/Dextrose/Sod Cl (D5 1/2 Ns W/ 20 Meq/L Kcl) 1,000 mls @ 75 mls/hr IV ASDIRECTED [facility] Potassium Chloride/Dextrose/Sod Cl (D5 1/2 Ns W/ 40 Meq/L Kcl) 1,000 mls @ 80 mls/hr IV ASDIRECTED [facility] Last Admin: 04/05/17 23:35 Dose: 80 mls/hr Magnesium Sulfate 2 gm/ Premix 50 mls @ 50 mls/hr IV ONETIME ONE Stop: 04/06/17 11:49 Last Admin: 04/06/17 11:21 Dose: 50 mls/hr Iopamidol (Isovue-300 (61%)) 100 ml IVPUSH ONETIME ONE Stop: 04/03/17 23:58 Last Admin: 04/04/17 00:54 Dose: 100 ml Magnesium Sulfate/Dextrose (Magnesium 1 Gm In D5w 100 Ml) 1 gm IV ONETIME ONE Stop: 04/05/17 12:01 Last Admin: 04/05/17 12:26 Dose: 1 gm Ondansetron HCl (Zofran) 4 mg IVPUSH ONETIME ONE Stop: 04/03/17 22:36 Last Admin: 04/03/17 22:56 Dose: 4 mg Ondansetron HCl (Zofran) 4 mg IVPUSH ONETIME ONE Stop: 04/03/17 23:50 Last Admin: 04/03/17 23:55 Dose: 4 mg Pantoprazole Sodium (Protonix Iv) 40 mg IVPUSH ONETIME ONE Stop: 04/03/17 22:36 Last Admin: 04/03/17 22:59 Dose: 40 mg - Exam General: Reports: alert, oriented HEENT: Reports: Pupils equal, Pupils reactive, EOMI, Mucous membr. moist/pink Neck: Reports: supple Lungs: Reports: Clear to auscultation, Normal respiratory effort Cardiovascular: Reports: Regular Rate, Regular Rhythm Abdomen: Reports: bowel sounds present, soft, no tenderness, no distension Back Exam: Reports: Normal Inspection, Full Range of Motion. Denies: CVA Tenderness (L), CVA Tenderness (R), Paraspinal Tenderness, Vertebral Tenderness Extremities: Reports: no edema Skin: Reports: warm, dry, intact Wound/Incisions: Reports: healing well Neurological: Reports: no new focal deficit Psy/Mental Status: Reports: alert, normal affect, normal mood *Q Meaningful Use (DIS) - VTE *Q VTE Criteria *Q: - Stroke *Q Stroke Criteria *Q: - AMI *Q AMI Criteria *Q:
== END 2017-04-07 11:30 | disposition home or self-care (01) | DRG 247 ==
LOC: LL.ED 22:31 → LL.MS 04-04 01:35
PROVIDERS: ADMIT Family Medicine; ATTEND Family Medicine
DX: K56.60 Unspecified intestinal obstruction (principal); K56.7 Ileus, unspecified; E03.9 Hypothyroidism, unspecified; K21.9 Gastro-esophageal reflux disease without esophagitis; F10.21 Alcohol dependence, in remission; J44.9 Chronic obstructive pulmonary disease, unspecified; N40.0 Benign prostatic hyperplasia without lower urinary tract symptoms; F41.8 Other specified anxiety disorders; M15.0 Primary generalized (osteo)arthritis; Z87.891 Personal history of nicotine dependence; H54.7 Unspecified visual loss; Z88.1 Allergy status to other antibiotic agents; E83.42 Hypomagnesemia
CPT/HCPCS: 36415; 74000; 74022; 74177; 80053; 81001; 82150; 82272; 83605; 83690; 83735; 84100; 84550; 85025; 85610; 85730; 86140; 86318; 87086; 94640; 94664; 96361; 96365; 96367; 96375; 96376; 99285; A9270-GY; C9113; J0696; J1170; J1650; J2405; J2765; J3475; J3480; J7050; J7120; Q9967; S0028

== ENCOUNTER 2021-05-01 08:20 | Emergency (ER) | payer BC ==
[2021-05-01 08:53] LABS: CHLORIDE,CL 97 mmol/L (98-107); SODIUM,NA 133 mmol/L (136-145)
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
[2021-05-01] MEDS ORDERED: Bupivacaine 0.25% 10 ML SDV ONE ×3 (10:22→11:20)
[2021-05-01] MEDS ORDERED: Sodium Chloride 0.9% 1,000 ML IV ONE (10:50)
[2021-05-01 12:51] VITALS: BP 129/73; PULSE 62
== END 2021-05-01 12:35 ==
LOC: LL.ED 08:20
DX: J93.9 Pneumothorax, unspecified (principal); R91.8 Other nonspecific abnormal finding of lung field; J44.9 Chronic obstructive pulmonary disease, unspecified; M19.90 Unspecified osteoarthritis, unspecified site; E03.9 Hypothyroidism, unspecified; Z88.0 Allergy status to penicillin; Z88.1 Allergy status to other antibiotic agents; Z79.82 Long term (current) use of aspirin; Z79.01 Long term (current) use of anticoagulants; Z79.899 Other long term (current) drug therapy
CPT/HCPCS: 32551; 36415; 71045; 80053; 85025; 99285; J3490; J7030; 31500; 99291